=== PATIENT | female | born 1955 | race Asian ===

== ENCOUNTER 2016-08-23 16:58 | Emergency (ER) | payer OTHER ==
[~2016-08-23] VITALS: Ht 167.6 cm; Wt 63.5 kg
[2016-08-23 17:00] VITALS: BP 129/74
[2016-08-23] MEDS ORDERED: Cyclobenzaprine 10mg Tab ORAL ONE (17:15)
[2016-08-23] MEDS ORDERED: CYCLOBENZAPRINE10 MG ORAL (18:31)
[2016-08-23] MEDS ORDERED: IBUPROFEN600 MG ORAL (18:31)
[2016-08-23 18:33] VITALS: BP 131/76
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
== END 2016-08-23 18:33 | disposition home or self-care (01) ==
LOC: EDBD 16:58 → EMR 17:17
DX: T14.8 Other injury of unspecified body region (principal); M54.9 Dorsalgia, unspecified; R51 Headache; V43.92XA Unspecified car occupant injured in collision with other type car in traffic accident, initial encounter; Y92.410 Unspecified street and highway as the place of occurrence of the external cause; Y99.8 Other external cause status
CPT/HCPCS: 70450; 72125; 99284